=== PATIENT | male | born 1940 | race Caucasian/White ===

== ENCOUNTER 2020-02-20 00:54 | Inpatient (IN) | payer MEDICARE, OTHER ==
[~2020-02-20] VITALS: Ht 182.9 cm; Wt 62.1 kg
--- NOTE | 2020-02-20 01:08 | NUR ---
GARRETT FROM [facility] FOR ALTERED MENTAL STATUS AND SOB. PT NONVERBAL, EYES OPEN WITH PURPOSEFUL MOVEMENT. NO ACTIVE NVD AT THIS TIME. PT GOWNED AND PLACED ON MONITOR, BLOOD WORK SENT TO LAB, NO ACUTE DISTRESS NOTED. PT EVALUATED BY DR. PUTNAM
--- NOTE | 2020-02-20 01:08 | NUR ---
CALLED LAB FOR SWABS
[2020-02-20] MEDS ORDERED: diphenhydrAMINE HCL 50 MG/ML VIAL ONE ×4 (01:17→22:10)
--- NOTE | 2020-02-20 01:17 | NUR ---
RADIOLOGY AT BEDSIDE FOR CXR
[2020-02-20] MEDS ORDERED: LORAZEPAM INJ 2 MG/ML VIAL ONE ×2 (01:18→03:51)
--- NOTE | 2020-02-20 01:19 | NUR ---
PT VERY AGITATED AND UNABLE TO STAY STILL IN BED. MD MADE AWARE W/ A VERBAL ORDER FOR BENADRYL 25MG IV AND ATIVAN 0.5MG IV. NOTED
--- NOTE | 2020-02-20 01:20 | NUR ---
pt medicated as ordered. cooling measures applied for rectal fever 102. will closely monitor.
[2020-02-20] MEDS ORDERED: ACETAMINOPHEN 650 MG/SUPP.RECT RC ONE ×2 (01:29→01:30)
[2020-02-20] MEDS ORDERED: diphenhydrAMINE HCL 50 MG/ML VIAL IV ONE ×2 (01:30→04:00)
[2020-02-20] MEDS ORDERED: LORAZEPAM INJ 2 MG/ML VIAL IV ONE ×2 (01:30→04:00)
--- NOTE | 2020-02-20 01:37 | NUR ---
on room air pt noted at 95% with periods of 89%. RT called for abg order per dr. brady
[2020-02-20 01:43] LABS: BASOPHILS % (AUTO) 0.3 % (0.0-2.0); HEMATOCRIT 53 % (39-51); HEMOGLOBIN 17.7 g/dL (13.5-17.5); LYMPHOCYTES # (AUTO) 1.4 /CMM (0.8-4.8); LYMPHOCYTES % (AUTO) 15.4 % (20.0-44.0); MEAN CORPUSCULAR HGB CONC 33 g/dl (31.0-36.0); MEAN CORPUSCULAR VOLUME 102 fL (80-96); MONOCYTES # (AUTO) 0.6 /CMM (0.1-1.30); MONOCYTES % (AUTO) 6.9 % (2.0-12.0); NEUTROPHILS # (AUTO) 7.2 /CMM (1.8-8.9); NEUTROPHILS % (AUTO) 77.4 % (43.0-81.0); PLATELET COUNT (AUTO) 365 /CMM (150-450); RED BLOOD CELL COUNT(AUTO) 5.24 MIL/uL (4.5-6.0); WHITE BLOOD COUNT (AUTO) 9.3 K/uL (4.3-11.0)
[2020-02-20 01:45] LABS: BILIRUBIN,URINE SMALL (NEGATIVE); COLOR,URINE DARK YELLOW (YELLOW); LEUKOCYTE ESTERASE ,URINE NEGATIVE (NEGATIVE); NITRITE, URINE NEGATIVE (NEGATIVE); PH,URINE 5.5 (5.0-8.0); PROTEIN,URINE 100 mg/dl (NEGATIVE); UGLUCOSE NEGATIVE (NEGATIVE)
--- NOTE | 2020-02-20 01:45 | NUR ---
RT at bedside for ABG
--- NOTE | 2020-02-20 01:50 | NUR ---
pt to radiology for ct head.
[2020-02-20 01:57] LABS: C-REACTIVE PROTEIN 8.1 mg/dL (0.0-0.9)
[2020-02-20 01:58] LABS: ABG BASE EXCESS -2.1 mmol/L; ABG OXYGEN SATURATION 89.6 % (92.0-98.5); ABG PCO2 33.8 mmHg (35.0-45.0); AaDO2 51.3 mmHg; COHb 0.4 % (0.5-1.5); MetHb 0.1 % (0.0-1.5); O2Hb 89.2 % (94.0-97.0); SITE, ABG Left Radial; VENT MODE, BG Room Air
[2020-02-20 02:04] LABS: BACTERIA,URINE Few /HPF (None Seen); SQUAMOUS EPITHELIAL CELL,UR Few /HPF (None Seen); URINE AMORPHOUS URATE Many /HPF (None Seen)
[2020-02-20 02:10] LABS: ALANINE AMINOTRANSFERASE 266 U/L (12-78); ALBUMIN 3.4 g/dL (3.4-5.0); ALKALINE PHOSPHATASE 154 U/L (46-116); ASPARTATE AMINOTRANSFERASE 203 U/L (15-37); B-TYPE NATRIURETIC PEPTIDE 809 PG/ML (0-125); BILIRUBIN,TOTAL 1.3 mg/dL (0.2-1.0); CALCIUM, SERUM 10.1 mg/dL (8.5-10.1); CARBON DIOXIDE 28 mmol/L (21-32); CHLORIDE 114 mmol/L (98-107); CREATININE 2.4 mg/dL (0.6-1.3); GLUCOSE 210 mg/dL (74-106); TOTAL PROTEIN, SERUM 10.4 g/dL (6.4-8.2)
[2020-02-20 02:13] LABS: SODIUM SERUM 157 mmol/L (136-145); UREA NITROGEN, BLOOD 96 mg/dL (7-18)
[2020-02-20] MEDS ORDERED: DEXAMETHASONE SOD PHOSPHATE 10 MG/ML VIAL ONE (02:16)
[2020-02-20] MEDS ORDERED: QUET25TA PO (02:28)
[2020-02-20] MEDS ORDERED: DOCU-141 PO (02:28)
[2020-02-20] MEDS ORDERED: [UNRECOGNIZED DRUG - CODE] MC (02:28)
[2020-02-20] MEDS ORDERED: MULT-447 PO (02:28)
[2020-02-20] MEDS ORDERED: QUET100T PO (02:28)
[2020-02-20] MEDS ORDERED: CYAN-51 PO (02:28)
[2020-02-20] MEDS ORDERED: CLON0.5T PO (02:28)
[2020-02-20] MEDS ORDERED: CHOL2400 MC (02:28)
[2020-02-20] MEDS ORDERED: TRAZ-182 PO (02:28)
[2020-02-20] MEDS ORDERED: ASCO500W7 PO (02:28)
[2020-02-20] MEDS ORDERED: IV NS 0.9% 1,000 ML BAG IV ONE (02:30)
[2020-02-20] MEDS ORDERED: Z GUARD REMEDY 2 OZ OINT TP PRN (02:30)
[2020-02-20] MEDS ORDERED: ASPIRIN 300 MG/SUPP.RECT RC PRN (02:30)
[2020-02-20] MEDS ORDERED: ONDANSETRON HCL/PF 4 MG/2 ML VIAL IVP PRN (02:30)
[2020-02-20] MEDS ORDERED: DEXAMETHASONE SOD PHOSPHATE 10 MG/ML VIAL IV ONE (02:30)
--- NOTE | 2020-02-20 02:31 | NUR ---
pt to radiology for ct.
--- NOTE | 2020-02-20 02:36 | NUR ---
PT BACK FROM RADIOLOGY
[2020-02-20] MEDS ORDERED: VANCOMYCIN 500 MG VIAL ONE (02:55)
[2020-02-20] MEDS ORDERED: VANCOMYCIN 1 GM VIAL ONE (02:55)
[2020-02-20] MEDS ORDERED: VANCOMYCIN 1.5 GM in IV D5W 500ml IV ONE (03:00)
[2020-02-20] MEDS ORDERED: ACETAMINOPHEN 650 MG/SUPP.RECT RC PRN (03:00)
[2020-02-20 03:07] LABS: C-REACTIVE PROTEIN 7.9 mg/dL (0.0-0.9)
[2020-02-20] MEDS: IV NS 0.9% 1,000 ML IV PRN ×2 (03:23→22:08)
--- NOTE | 2020-02-20 03:47 | NUR ---
pt noted agitated, verbal orders per dr. brady to give ativan 0.5mg ivp/ benadryl 25mg ivp
--- NOTE | 2020-02-20 04:10 | NUR ---
pt turned and repositioned. noted unmeasuerable void in diaper.
[2020-02-20] MEDS ORDERED: CEFEPIME 1 GM in IV D5W 50 ML IV ONE (05:00)
--- NOTE | 2020-02-20 05:49 | NUR ---
unable to admin cefepime at this time in ER and additional pyxis, pharmacy closed, informed dr. rehman, waiting for orders.
[2020-02-20 05:56] LABS: BILIRUBIN,DIRECT 0.6 mg/dL (0.0-0.2)
--- NOTE | 2020-02-20 06:10 | NUR ---
pt turned and repositioned q2 hrs or prn. no acute distress noted. pt tolerated ivf.
--- NOTE | 2020-02-20 06:38 | NUR ---
informed dr. rehman updated labs trop and lactic acid. waiting for orders.
--- NOTE | 2020-02-20 07:14 | NUR ---
report given to GISSELL DORSEY for continuity of care. no acute distress noted at this time.
[2020-02-20] MEDS ORDERED: CHOL100040 PO (07:28)
[2020-02-20] MEDS ORDERED: ACET-868 PO (07:28)
[2020-02-20] MEDS ORDERED: ZINC220C6 PO (07:28)
[2020-02-20] MEDS ORDERED: MAGN400O6 PO (07:28)
[2020-02-20] MEDS ORDERED: ASCO500T10 PO (07:28)
[2020-02-20] MEDS ORDERED: PANTOPRAZOLE 40 MG VIAL IV SCH (09:00)
[2020-02-20] MEDS: CEFEPIME 2 GM in IV D5W 100 ML IV SCH (10:05)
[2020-02-20] MEDS: FAMOTIDINE/PF INJ 20 MG/2 ML VIAL IV SCH ×2 (10:05→21:27)
[2020-02-20] MEDS: DEXAMETHASONE SOD PHOSPHATE 10 MG/ML VIAL IV SCH (10:05)
[2020-02-20] MEDS: HEPARIN SODIUM, PORCINE 5000 UNITS/1 ML VIAL SQ SCH ×2 (10:05→21:27)
--- NOTE | 2020-02-20 10:43 | NUR ---
pt care rendered. pt is noted with rashes all over his lower leg and scrathcing. dr. cowan notified. verbal order received to give benadryl 25mg iv X 1. noted and carried out
[2020-02-20] MEDS: diphenhydrAMINE HCL 50 MG/ML VIAL IV PRN ×2 (11:36→22:19)
[2020-02-20] MEDS: ASPIRIN 325 MG TABLET PO SCH (12:15)
--- NOTE | 2020-02-20 19:24 | NUR ---
pt cleaned and kept dry. sitter tried to feed the pt but he is agitated and did not eat.
[2020-02-20] MEDS ORDERED: MORPHINE SULFATE INJ 2 MG/ML DISP.SYRIN ONE (22:10)
[2020-02-20] MEDS: MORPHINE SULFATE INJ 2 MG/ML DISP.SYRIN IV PRN (22:20)
--- NOTE | 2020-02-20 22:35 | NUR ---
PT ENDORSED TO GISSELL MELENDEZ
--- NOTE | 2020-02-20 23:50 | NUR ---
LAB CALLED REGARDING BLOOD CULTURE ANAEROBIC GRAM STAIN (+) COCCI IN CLUSTERS.
[2020-02-21] MEDS ORDERED: LORAZEPAM INJ 2 MG/ML VIAL IV ONE (01:00)
[2020-02-21] MEDS ORDERED: LORAZEPAM INJ 2 MG/ML VIAL ONE (01:00)
[2020-02-21] MEDS: VANCOMYCIN 1 GM in IV D5W 250ml IV SCH (05:06)
[2020-02-21 05:53] LABS: BASOPHILS % (AUTO) 0.1 % (0.0-2.0); HEMATOCRIT 45 % (39-51); HEMOGLOBIN 14.9 g/dL (13.5-17.5); LYMPHOCYTES % (AUTO) 9.7 % (20.0-44.0); MEAN CORPUSCULAR HGB CONC 33 g/dl (31.0-36.0); MEAN CORPUSCULAR VOLUME 102 fL (80-96); MONOCYTES # (AUTO) 0.7 /CMM (0.1-1.30); MONOCYTES % (AUTO) 6.3 % (2.0-12.0); NEUTROPHILS % (AUTO) 83.9 % (43.0-81.0); PLATELET COUNT (AUTO) 306 /CMM (150-450); RED BLOOD CELL COUNT(AUTO) 4.45 MIL/uL (4.5-6.0); WHITE BLOOD COUNT (AUTO) 10.7 K/uL (4.3-11.0)
[2020-02-21 06:19] LABS: B-TYPE NATRIURETIC PEPTIDE 1073 PG/ML (0-125); CALCIUM, SERUM 9.3 mg/dL (8.5-10.1); CARBON DIOXIDE 27 mmol/L (21-32); CREATININE 2.1 mg/dL (0.6-1.3); GLUCOSE 261 mg/dL (74-106); MAGNESIUM 3.8 mg/dL (1.8-2.4); POTASSIUM 4.5 mmol/L (3.5-5.1)
[2020-02-21 06:22] LABS: CHLORIDE 127 mmol/L (98-107); SODIUM SERUM 164 mmol/L (136-145); UREA NITROGEN, BLOOD 106 mg/dL (7-18)
[2020-02-21 06:36] LABS: CHOLESTEROL 181 mg/dL (<200); HDL CHOLESTEROL 24 mg/dL (40-60); LDL 104 mg/dL (0-99); THYROID STIMULATING HORMONE 0.418 uIU/mL (0.358-3.74); TRIGLYCERIDES 308 mg/dL (30-150)
[2020-02-21] MEDS: ASPIRIN 325 MG TABLET PO SCH (09:00)
[2020-02-21] MEDS: HEPARIN SODIUM, PORCINE 5000 UNITS/1 ML VIAL SQ SCH ×2 (09:00→21:54)
[2020-02-21] MEDS: CEFEPIME 2 GM in IV D5W 100 ML IV SCH (09:00)
[2020-02-21] MEDS: DEXAMETHASONE SOD PHOSPHATE 10 MG/ML VIAL IV SCH (09:00)
[2020-02-21] MEDS: FAMOTIDINE/PF INJ 20 MG/2 ML VIAL IV SCH ×2 (09:00→21:55)
--- NOTE | 2020-02-21 10:13 | NUR ---
Status quo still awaiting bed, remains restless and agitated at times moving in bed.
[2020-02-21] MEDS ORDERED: DEXTROSE 50%-WATER 50 ML DISP.SYRIN IV PRN (11:30)
[2020-02-21] MEDS: BLOOD SUGAR DIAGNOSTIC 1 EACH STRIP IN SCH ×2 (12:00→17:13)
--- NOTE | 2020-02-21 14:00 | NUR ---
Beddings changed/maría care rendered and cleaned. Diapers changed. Remains restless in bed with periods of rest. Able to doze on/off. Pt turns head side to side frequently and dislodges Oxygen cannula- Remains on O2 to keep sats >92. Repositioned frequently and turned Q2H.
[2020-02-21] MEDS: INSULIN REGULAR, HUMAN 100 UNIT/ML 3 ML VIAL SQ PRN (17:16)
--- NOTE | 2020-02-21 17:50 | NUR ---
Remains on NPO/Non Verbal Accu check as ordered with SS coverage
--- NOTE | 2020-02-21 19:25 | NUR ---
Report to GISSELL Calvillo for continuity of care
[2020-02-21] MEDS ORDERED: PERMETHRIN 5% CRM 60 GM TUBE TP ONE (20:00)
--- NOTE | 2020-02-21 21:26 | NUR ---
REPORT CALLED TO LILY RITTER. WILL TRANSPORT PT VIA ACLS PROTOCOL.
[2020-02-21] MEDS ORDERED: FAMOTIDINE/PF INJ 20 MG/2 ML VIAL IV ONE (21:52)
--- NOTE | 2020-02-21 22:10 | NUR ---
RN OPENING NOTE ADMIT PATIENT TO [facility] UNIT ON TELE MONITORING,ALERT CONFUSED ANXIOUS NONVERBAL EYE CLOSED COVID POSITIVE WITH ADMITTING DIAGNOSIS: SEPTIC SHOCK HYPOXEMIA,RENAL FAILURE,ON 5L OXYGEN VIA NASAL CANNULA O2:90%IV SITE IS ON RIGHT UPPER ARM #20 G INTACT PATENT PATIENT HAS RASHES ALL OVER BODY IN CONTACT ISOLATION,CONTINUE TO MONITOR
--- NOTE | 2020-02-21 22:10 | NUR ---
PT TRANSFERRED PER [facility]S PROTOCOL
[2020-02-21] MEDS: IV D5/0.45 NACL 1,000 ML IV PRN (22:47)
[2020-02-21 23:00] VITALS: BP 110/73
[2020-02-22] VITALS (7 sets, daily range): BP systolic 133–158; BP diastolic 77–83
[2020-02-22] MEDS: BLOOD SUGAR DIAGNOSTIC 1 EACH STRIP IN SCH ×5 (00:14→23:55)
[2020-02-22] MEDS: INSULIN REGULAR, HUMAN 100 UNIT/ML 3 ML VIAL SQ PRN ×3 (00:15→18:09)
[2020-02-22] MEDS: MORPHINE SULFATE INJ 2 MG/ML DISP.SYRIN IV PRN (00:34)
[2020-02-22] MEDS: VANCOMYCIN 1 GM in IV D5W 250ml IV SCH (04:38)
[2020-02-22 04:41] LABS: BASOPHILS # (AUTO) 0.1 /CMM (0.0-0.2); BASOPHILS % (AUTO) 0.4 % (0.0-2.0); HEMATOCRIT 46 % (39-51); HEMOGLOBIN 14.8 g/dL (13.5-17.5); LYMPHOCYTES # (AUTO) 0.9 /CMM (0.8-4.8); LYMPHOCYTES % (AUTO) 6.7 % (20.0-44.0); MEAN CORPUSCULAR HGB CONC 32 g/dl (31.0-36.0); MEAN CORPUSCULAR VOLUME 102 fL (80-96); MONOCYTES # (AUTO) 0.8 /CMM (0.1-1.30); MONOCYTES % (AUTO) 6.2 % (2.0-12.0); NEUTROPHILS # (AUTO) 11.1 /CMM (1.8-8.9); NEUTROPHILS % (AUTO) 86.7 % (43.0-81.0); PLATELET COUNT (AUTO) 292 /CMM (150-450); WHITE BLOOD COUNT (AUTO) 12.8 K/uL (4.3-11.0)
[2020-02-22 05:00] LABS: CALCIUM, SERUM 9.2 mg/dL (8.5-10.1); CARBON DIOXIDE 22 mmol/L (21-32); CREATININE 1.8 mg/dL (0.6-1.3); GLUCOSE 263 mg/dL (74-106); MAGNESIUM 3.9 mg/dL (1.8-2.4); PHOSPHORUS 4.2 mg/dL (2.5-4.9); POTASSIUM 4.6 mmol/L (3.5-5.1)
[2020-02-22 05:07] LABS: CHLORIDE 133 mmol/L (98-107); SODIUM SERUM 167 mmol/L (136-145); UREA NITROGEN, BLOOD 89 mg/dL (7-18)
--- NOTE | 2020-02-22 05:23 | NUR ---
RN NOTE RECEIVED CRITICAL LAB RESULT SODIUM 167 CHLORIDE 133 BUN 89,SPOKE WITH MAYKEL BATISTA NO NEW ORDER AT THIS TIME,FOLLOW UP WITH MORNING SHIFT,CONTINUE TO MONITORING
--- NOTE | 2020-02-22 06:56 | NUR ---
RN NOTE START A NEW IV LINE ON RIGHT FOREARM #20 G WITH GOOD BLOOD RETURN INTACT PATENT NO SWELLING,NO INFILTRATED CONTINUE TO MONITOR.
--- NOTE | 2020-02-22 07:01 | NUR ---
RN CLOSING NOTE PATIENT REMAINS ALERT CONFUSED ANXIOUS,NON VERBAL CLOSE EYES,ON 5L OXYGEN VIA NASAL CANNULA 02:94%,COVID POSITIVE, ON CONTACT/DROPLET ISOLATION,IV SITE IS LEFT UPPER ARM AND RIGHT FOREARM INTACT PATENT ON D51/2NS IV HYDRATION 100CC/HR,ALL DUE MEDS GIVEN MD ORDERED,KEPT CLEAN AND DRY ALL THE TIME,KEPT COMFORTABLE,ENDORSE NEXT COMING SHIFT FOR CONTINUATION OF CARE.
--- NOTE | 2020-02-22 07:40 | NUR ---
WOUND CARE CONSULT: REVIEWED CHART, NURSING DOCUMENTATION AND PHOTOS WHICH INDICATE RT GREAT TOENAIL DISCOLORATION, RASHES TO BODY (GENERALIZED) AND RT ARM SKIN TEAR, ALL PRESENT ON ADMISSION. RECOMMENDATIONS MADE FOR SKIN PROTECTION AND WOUND CARE. DISCUSSED WITH NURSING STAFF. PT NOTED TO BE MOVING ABOUT IN BED. MD IN AGREEMENT WITH PLAN OF CARE. Addendum: 02/22/20 at 0743 by GIANNA PORTER WNDNU PER CHART, PT WAS TREATED WITH ELIMITE CREAM FOR RASH.
[2020-02-22] MEDS: FAMOTIDINE/PF INJ 20 MG/2 ML VIAL IV SCH ×2 (08:14→20:35)
[2020-02-22] MEDS: DEXAMETHASONE SOD PHOSPHATE 10 MG/ML VIAL IV SCH (08:14)
[2020-02-22] MEDS: HEPARIN SODIUM, PORCINE 5000 UNITS/1 ML VIAL SQ SCH ×2 (08:17→20:35)
[2020-02-22] MEDS: ASPIRIN 325 MG TABLET PO SCH (09:00)
[2020-02-22] MEDS: MULTIVITAMINS,THERAGRAN 1 UDTAB TABLET PO SCH (09:16)
[2020-02-22] MEDS: ZINC SULFATE 220 MG CAPSULE PO SCH (09:30)
[2020-02-22] MEDS: CHOLECALCIFEROL 1,000 UNIT TABLET (VIT D3) PO SCH (09:30)
[2020-02-22] MEDS: CYANOCOBALAMIN 500 MCG TABLET PO SCH (09:30)
[2020-02-22] MEDS: ASCORBIC ACID 500 MG TABLET PO SCH (09:30)
[2020-02-22] MEDS: CEFEPIME 2 GM in IV D5W 100 ML IV SCH (09:59)
[2020-02-22] MEDS: IV D5/0.45 NACL 1,000 ML IV PRN ×2 (10:07→22:49)
[2020-02-22] MEDS: NITROGLYCERIN 30 GM TUBE TP SCH ×2 (11:00→20:53)
--- NOTE | 2020-02-22 11:00 | NUR ---
RN NOTES DR. RIVERA ORDERED NG TUBE INSERTION. PT CANNOT TOLERATE PROCEDURE, IN DISTRESS. INFORMED MD.
--- NOTE | 2020-02-22 14:00 | NUR ---
RN NOTES DR. RIVERA TRIED INSERTING NG TUBE. PT NOT TOLERATING PROCEDURE STILL. WILL TRY AGAIN ABDIFATAH
--- NOTE | 2020-02-22 19:30 | NUR ---
TYPE CASTER NOTES RECEIVED ON FLAT ON BED,BREATHING NON LABORED,O2 IN USED AT 5L/NC,DROPLET ISOLATION FOR COVID 19 POSITIVE,APPEARS CONFUSED,ON BILATERAL SOFT WRIST RESTRAINTS FOR SAFETY,TRYING TO PULL OUT IV TUBINGS.PRESENT IVF INFUSING WELL ON LFA SALINE LOCK VIA IV PUMP,SITE PATENT.NOTED GENERALIZED BODY RASH,WILL START ON TOPICAL CREAM NEW ORDER.WILL CONTINUE TO MONITOR STATUS.
--- NOTE | 2020-02-22 19:36 | NUR ---
RN CLOSING NOTES PT IN BED. CONFUSED. WITH BILATERAL SOFT RESTRAINTS. NON VERBAL. ON 5L OXYGEN VIA NASAL CANNULA SATURATING @96%. COVID POSITIVE, ON CONTACT/DROPLET ISOLATION. IV SITE ON ANGIE AND RFA BOTH INTACT AND PATENT. D5 1/2 NS IV @100CC/HR. SAFETY MEASURES OBSERVED. CALL LIGHT WITHIN REACH. BED LOCKED AND AT LOWEST POSITION. WILL ENDORSE TO NIGHT NURSE FOR JULIEN
[2020-02-22] MEDS: diphenhydrAMINE HCL 50 MG/ML VIAL IV SCH (20:37)
--- NOTE | 2020-02-22 20:37 | NUR ---
PUBLIC AREA SUPERVISOR NOTES STARTED ON BENADRYL 25MG IV ORDERED FOR BODY RASH
[2020-02-22] MEDS: TRIAMCINOLONE ACETONIDE 0.1% CR 15 GM TUBE TP SCH (20:59)
--- NOTE | 2020-02-22 21:01 | NUR ---
[employer]WN [employer] TREE SERVICE SPRAY SUPERVISOR NOTES TRIAMCINOLONE CREAM STARTED TO BODY RASH ORDERED.
--- NOTE | 2020-02-23 | NUR ---
EVENT DESIGNER NOTES ACCU-CHECK BLOOD SUGAR CHECK 191.COVERED WITH HUMULIN R 3 UNITS PER SLIDING SCALE.IVF INFUSING.
[2020-02-23] MEDS: INSULIN REGULAR, HUMAN 100 UNIT/ML 3 ML VIAL SQ PRN ×4 (00:07→17:27)
[2020-02-23 03:00] VITALS: BP 130/82
[2020-02-23] MEDS: BLOOD SUGAR DIAGNOSTIC 1 EACH STRIP IN SCH ×3 (05:25→17:27)
--- NOTE | 2020-02-23 05:30 | NUR ---
VEHICLE PAINTER NOTES ACCU-CHECK BLOOD SUGAR CHECK 174,COVERED WITH HUMULIN R 3 UNITS PER SLIDING SCALE.
[2020-02-23 06:54] LABS: BASOPHILS % (AUTO) 0.2 % (0.0-2.0); HEMATOCRIT 45 % (39-51); HEMOGLOBIN 14.6 g/dL (13.5-17.5); LYMPHOCYTES # (AUTO) 0.9 /CMM (0.8-4.8); LYMPHOCYTES % (AUTO) 8.1 % (20.0-44.0); MEAN CORPUSCULAR HGB CONC 32 g/dl (31.0-36.0); MEAN CORPUSCULAR VOLUME 102 fL (80-96); MONOCYTES # (AUTO) 0.6 /CMM (0.1-1.30); MONOCYTES % (AUTO) 5.6 % (2.0-12.0); NEUTROPHILS # (AUTO) 9.5 /CMM (1.8-8.9); NEUTROPHILS % (AUTO) 86.1 % (43.0-81.0); PLATELET COUNT (AUTO) 267 /CMM (150-450); RED BLOOD CELL COUNT(AUTO) 4.43 MIL/uL (4.5-6.0); WHITE BLOOD COUNT (AUTO) 11.1 K/uL (4.3-11.0)
--- NOTE | 2020-02-23 06:55 | NUR ---
OUTSOLE BEVELER NOTES ON BED,REMAINS CONFUSED,NO SOB ,AFEBRILE,O2 SATURATION REMAINS AT 90-96% ON 5L/NC,RESTLESS AT TIMES,BILATERAL SOFT RESTRAINTS IN USED.IVF INFUSING,IN NO ACUTE DISTRESS.
[2020-02-23 07:00] VITALS: BP 149/82
[2020-02-23 07:08] LABS: CALCIUM, SERUM 9.5 mg/dL (8.5-10.1); CARBON DIOXIDE 23 mmol/L (21-32); CREATININE 1.5 mg/dL (0.6-1.3); GLUCOSE 221 mg/dL (74-106); PHOSPHORUS 3.4 mg/dL (2.5-4.9); POTASSIUM 4.6 mmol/L (3.5-5.1); UREA NITROGEN, BLOOD 78 mg/dL (7-18)
--- NOTE | 2020-02-23 07:50 | NUR ---
TELE OPENING NOTES RECEIVED PT IN BED. CONFUSED. WITH BILATERAL SOFT RESTRAINTS. NON VERBAL.ON 5L OXYGEN VIA NASAL CANNULA SATURATING @96%. COVID POSITIVE, ON CONTACT/DROPLET ISOLATION. IV SITE ON ANGIE AND RFA BOTH INTACT AND PATENT. D5 1/2 NS IV @100CC/HR. SAFETY MEASURES OBSERVED. CALL LIGHT WITHIN REACH. BED LOCKED AND AT LOWEST POSITION. WILL CONTINUE TO MONITOR
[2020-02-23] MEDS: CHOLECALCIFEROL 1,000 UNIT TABLET (VIT D3) PO SCH (08:31)
[2020-02-23] MEDS: CYANOCOBALAMIN 500 MCG TABLET PO SCH (08:31)
[2020-02-23] MEDS: ZINC SULFATE 220 MG CAPSULE PO SCH (08:31)
[2020-02-23] MEDS: ASPIRIN 325 MG TABLET PO SCH (08:31)
[2020-02-23] MEDS: ASCORBIC ACID 500 MG TABLET PO SCH (08:31)
[2020-02-23] MEDS: MULTIVITAMINS,THERAGRAN 1 UDTAB TABLET PO SCH (08:31)
[2020-02-23] MEDS: CEFEPIME 2 GM in IV D5W 100 ML IV SCH (08:39)
[2020-02-23] MEDS: NITROGLYCERIN 30 GM TUBE TP SCH ×2 (08:42→20:55)
[2020-02-23] MEDS: TRIAMCINOLONE ACETONIDE 0.1% CR 15 GM TUBE TP SCH ×2 (08:44→17:21)
[2020-02-23] MEDS: diphenhydrAMINE HCL 50 MG/ML VIAL IV SCH ×2 (08:48→17:21)
[2020-02-23] MEDS: DEXAMETHASONE SOD PHOSPHATE 10 MG/ML VIAL IV SCH (08:50)
[2020-02-23] MEDS: FAMOTIDINE/PF INJ 20 MG/2 ML VIAL IV SCH ×2 (08:50→20:49)
[2020-02-23] MEDS: HEPARIN SODIUM, PORCINE 5000 UNITS/1 ML VIAL SQ SCH ×2 (08:53→20:52)
--- NOTE | 2020-02-23 08:58 | NUR ---
LAB CRITICAL RESULTS RECEIVED CALL FROM YAMILET FROM LAB WITH SODIUM 171 CHLORIDE 135 BUN 78 NOTIFIED
[2020-02-23 08:59] LABS: CHLORIDE 135 mmol/L (98-107); SODIUM SERUM 171 mmol/L (136-145)
[2020-02-23] MEDS ORDERED: MULTIVITAMIN LIQ 5 ML UDC GT SCH (09:00)
[2020-02-23] MEDS: IV D5/0.45 NACL 1,000 ML IV PRN (09:04)
[2020-02-23 11:00] VITALS: BP 149/82
[2020-02-23 15:00] VITALS: BP 146/81
[2020-02-23 19:00] VITALS: BP 148/67
--- NOTE | 2020-02-23 19:06 | NUR ---
RN CLOSING NOTE PATIENT REMAINS ALERT CONFUSED NON VERBAL CLOSE EYES,ON 5L OXYGEN VIA NASAL CANNULA O2SAT RANGING FROM 92-95 % COVID POSITIVE, ON CONTACT/DROPLET ISOLATION,IV SITE IS LEFT UPPER ARM AND RIGHT FOREARM INTACT PATENT ON D5W HYDRATION 100CC/HR,ALL DUE MEDS GIVEN MD ORDERED,KEPT CLEAN AND DRY ALL THE TIME,KEPT COMFORTABLE,WILL ENDORSE TO ONCOMING SHIFT
[2020-02-23] MEDS: IV D5W 1,000 ML IV PRN (19:19)
--- NOTE | 2020-02-23 19:30 | NUR ---
CELL MAKER NOTES RECEIVED CALM ON BED THIS TIME,NON RESTLESS.STILL ON BILATERAL SOFT WRIST RESTRAINTS FOR SAFETY,PATIENT HAS TENDENCY TO PULL OUT TUBINGS.PRESENT IVF D5W AT 150ML/HR RATE INFUSING WELL ON ANGIE SALINE LOCK VIA IV PUMP.INCONTINENT OF URINE.BODY RASH APPEARS DRY.O2 IN USED AT 5L/NC.NO SOB.WILL CONTINUE TO MONITOR STATUS.
--- NOTE | 2020-02-23 21:18 | NUR ---
LINE ORDERING CLINICIAN NOTES SR WITH PAC'S/PVC'S-62 ON TELE MONITOR.
[2020-02-23 23:00] VITALS: BP 109/76
[2020-02-24] MEDS: INSULIN REGULAR, HUMAN 100 UNIT/ML 3 ML VIAL SQ PRN ×5 (00:13→23:48)
[2020-02-24 03:00] VITALS: BP 109/70
[2020-02-24] MEDS: IV D5W 1,000 ML IV PRN ×2 (03:13→14:12)
[2020-02-24] MEDS: BLOOD SUGAR DIAGNOSTIC 1 EACH STRIP IN SCH ×5 (05:34→23:48)
--- NOTE | 2020-02-24 05:49 | NUR ---
LICENSED ARCHITECT NOTES ACCU-CHECK BLOOD SUGAR CHECK 197,COVERED WITH HUMULIN R 3 UNITS PER SLIDING SCALE.
--- NOTE | 2020-02-24 06:40 | NUR ---
BALLAST INSPECTOR NOTES NO SIGNIFICANT CHANGE IN STATUS.REMAINS AFEBRILE.IVF INFUSIN,NO SOB NOTED,RESTRAINTS IN USED FOR SAFETY.IN NO ACUTE DISTRESS.
[2020-02-24 07:00] VITALS: BP 112/72
--- NOTE | 2020-02-24 07:00 | NUR ---
STONE PLANER OPENING NOTES RECEIVED PT AWAKE IN BED AT THIS TIME. PT IS NON VERBAL. RESPONDS TO LIGHT STIMULUS. NO SOB NOTED, NO S/S OF ANY ACUTE DISTRESS NOTED. NO SIGN OF PAIN AT THIS TIME. RESPIRATIONS ARE EVEN AND UNLABORED. PT ON OXYGEN 5LPM VIA NC. PT ON EXTERNAL TELE FOREIGN CAR MECHANIC READING SR@70 WITH PAC. PT NOTED ON BILATERAL SOFT WRIST RESTRAINS, PULSES PRESENT BILATERALLY, CAPILLARY REFILL<3SECONDS, GOOD CIRCULATION NOTED. PT ON NPO STATUS. IV ACCESS NOTED IN LFA G#20, INTACT, PATENT AND FLUSHING WELL. SAFETY PRECAUTION IN PLACE AND MAINTAINED AT ALL TIMES. BED IN LOWEST LOCKED POSITION, HOB ELEVATED, SIDE RAILS UP X 2, CALL LIGHT AND TABLE WITHIN REACH. WILL CONTINUE TO MONITOR
[2020-02-24 07:26] LABS: BASOPHILS % (AUTO) 0.2 % (0.0-2.0); HEMATOCRIT 42 % (39-51); HEMOGLOBIN 13.6 g/dL (13.5-17.5); LYMPHOCYTES # (AUTO) 0.9 /CMM (0.8-4.8); LYMPHOCYTES % (AUTO) 10.2 % (20.0-44.0); MEAN CORPUSCULAR HGB CONC 33 g/dl (31.0-36.0); MEAN CORPUSCULAR VOLUME 103 fL (80-96); MONOCYTES # (AUTO) 0.4 /CMM (0.1-1.30); MONOCYTES % (AUTO) 4.6 % (2.0-12.0); NEUTROPHILS # (AUTO) 7.3 /CMM (1.8-8.9); PLATELET COUNT (AUTO) 207 /CMM (150-450); RED BLOOD CELL COUNT(AUTO) 4.07 MIL/uL (4.5-6.0); WHITE BLOOD COUNT (AUTO) 8.5 K/uL (4.3-11.0)
[2020-02-24 07:44] LABS: CARBON DIOXIDE 28 mmol/L (21-32); CREATININE 1.6 mg/dL (0.6-1.3); GLUCOSE 224 mg/dL (74-106); MAGNESIUM 3.5 mg/dL (1.8-2.4); PHOSPHORUS 3.2 mg/dL (2.5-4.9); POTASSIUM 4.5 mmol/L (3.5-5.1); UREA NITROGEN, BLOOD 70 mg/dL (7-18)
[2020-02-24 07:46] LABS: CHLORIDE 129 mmol/L (98-107); SODIUM SERUM 166 mmol/L (136-145)
[2020-02-24] MEDS: HEPARIN SODIUM, PORCINE 5000 UNITS/1 ML VIAL SQ SCH ×2 (08:41→21:32)
[2020-02-24] MEDS: DEXAMETHASONE SOD PHOSPHATE 10 MG/ML VIAL IV SCH (08:42)
[2020-02-24] MEDS: diphenhydrAMINE HCL 50 MG/ML VIAL IV SCH ×2 (08:42→16:29)
[2020-02-24] MEDS: FAMOTIDINE/PF INJ 20 MG/2 ML VIAL IV SCH ×2 (08:43→21:31)
[2020-02-24] MEDS: CEFEPIME 2 GM in IV D5W 100 ML IV SCH (08:44)
[2020-02-24] MEDS: CYANOCOBALAMIN 500 MCG TABLET PO SCH (09:00)
[2020-02-24] MEDS: CHOLECALCIFEROL 1,000 UNIT TABLET (VIT D3) PO SCH (09:00)
[2020-02-24] MEDS: ASCORBIC ACID 500 MG TABLET PO SCH (09:00)
[2020-02-24] MEDS: ZINC SULFATE 220 MG CAPSULE PO SCH (09:00)
[2020-02-24] MEDS: MULTIVITAMINS,THERAGRAN 1 UDTAB TABLET PO SCH (09:00)
[2020-02-24] MEDS: ASPIRIN 325 MG TABLET PO SCH (09:00)
[2020-02-24] MEDS: NITROGLYCERIN 30 GM TUBE TP SCH ×2 (09:48→21:32)
[2020-02-24] MEDS: TRIAMCINOLONE ACETONIDE 0.1% CR 15 GM TUBE TP SCH ×2 (09:50→16:29)
--- NOTE | 2020-02-24 09:57 | NUR ---
ANGIE IV INFILTRATED. IV REMOVED, PRESSURE APPLIED SECURE WITH GAUZE AND TAPE. ICE PACK APPLIED, HAND ELEVATED ON A PILLOW. WILL CONTINUE TO MONITOR
--- NOTE | 2020-02-24 09:58 | NUR ---
IV INSERTED IN RFA G#20, GOOD BLOOD RETURN NOTED. PT TOLERATED WELL. IV ACCESS INTACT, PATENT AND FLUSHING WELL. WILL CONTINUE TO MONITOR
[2020-02-24 11:00] VITALS: BP 120/80
--- NOTE | 2020-02-24 14:24 | NUR ---
SHARA MEJIAS ([phone]), PT's DAUGHTER CALLED AND WAS UPDATED ON PT's STATUS. WILL CONTINUE TO MONITOR
[2020-02-24 15:00] VITALS: BP 137/78
--- NOTE | 2020-02-24 17:14 | NUR ---
RFA IV INFILTRATED. IV REMOVED, PRESSURE APPLIED SECURE WITH GAUZE AND TAPE. ICE PACK APPLIED, HAND ELEVATED ON A PILLOW. WILL CONTINUE TO MONITOR
--- NOTE | 2020-02-24 17:17 | NUR ---
INSERTED IV ACCESS IN CHRIST G#22 AT THIS TIME, GOOD BLOOD RETURN NOTED. PT TOLERATED WELL. IV ACCESS INTACT, PATENT AND FLUSHING WELL. WILL CONTINUE TO MONITOR
[2020-02-24 19:02] VITALS: BP 126/68
--- NOTE | 2020-02-24 19:03 | NUR ---
RECREATION ACTIVITIES COORDINATOR CLOSING NOTES PT AWAKE IN BED AT THIS TIME. PT REMAINED STABLE THROUGHOUT SHIFT. ALL CARE, NEED, MEDICATIONS AND TREATMENT ADMINISTERED ANTICIPATED PER ORDER. WOUND TREATMENT PROVIDED. PT KEPT CLEAN AND DRY. RESTRAINTS ASSESSED Q2HR AND PRN. SKIN UNDERNEATH RESTRAINTS INTACT, PULSES ARE PRESENT BILATERALLY, CAPILLARY REFILL < 3SECONDS, GOOD CIRCULATION NOTED. ASPIRATION AND SAFETY PRECAUTION IN PLACE AND MAINTAINED AT ALL TIMES. BED IN LOWEST LOCKED POSITION, HOB ELEVATED, SIDE RAILS UP X 2, CALL LIGHT AND TABLE WITHIN REACH. WILL ENDORSE TO BASKET BRAIDER NURSE FOR JULIEN
--- NOTE | 2020-02-24 19:30 | NUR ---
TELE/RN OPENING NOTES RECEIVED PATIENT IN BED RESTING. PATIENT IS ALERT AND ORIENTED X 0 CONFUSED, NON VERBAL. PATIENT BREATHING IS EVEN AND UNLABORED. NO SIGNS OF SOB OR RESPIRATORY DISTRESS NOTED. PATIENT IN NO SIGNS OF DISTRESS. IV ACCESS ON CHRIST #20G RUNNING D5W 150CC/HR. BILATERAL SOFT WRIST RESTRAINTS IN PLACE WITH GOOD CIRCULATION. SAFETY MEASURES ARE IN PLACE, BED IS LOCKED AND PLACED IN THE LOW POSITION, SIDE RAILS UP X 3, CALL LIGHT WITH IN REACH. WILL CONTINUE TO MONITOR THROUGH OUT SHIFT.
[2020-02-24 21:53] LABS: CARBON DIOXIDE 25 mmol/L (21-32); CHLORIDE 124 mmol/L (98-107); CREATININE 1.5 mg/dL (0.6-1.3); GLUCOSE 297 mg/dL (74-106); POTASSIUM 5.3 mmol/L (3.5-5.1); SODIUM SERUM 153 mmol/L (136-145); UREA NITROGEN, BLOOD 66 mg/dL (7-18)
[2020-02-24 23:00] VITALS: BP 126/76
[2020-02-25 03:00] VITALS: BP 137/71
[2020-02-25] MEDS: IV D5W 1,000 ML IV PRN ×3 (05:10→23:10)
[2020-02-25] MEDS: BLOOD SUGAR DIAGNOSTIC 1 EACH STRIP IN SCH ×4 (05:46→23:50)
[2020-02-25] MEDS: INSULIN REGULAR, HUMAN 100 UNIT/ML 3 ML VIAL SQ PRN ×4 (05:47→23:56)
--- NOTE | 2020-02-25 06:35 | NUR ---
TELE/RN CLOSING NOTES PATIENT IN BED RESTING. PATIENT IS ALERT AND ORIENTED X 0 CONFUSED, NON VERBAL. PATIENT BREATHING IS EVEN AND UNLABORED. NO SIGNS OF SOB OR RESPIRATORY DISTRESS NOTED. TELE READING SR 62S. PATIENT IN NO SIGNS OF DISTRESS. IV ACCESS ON CHRIST #20G RUNNING D5W 150CC/HR. BILATERAL SOFT WRIST RESTRAINTS IN PLACE WITH GOOD CIRCULATION. ALL PATIENT NEEDS HAVE BEEN MET DURING SHIFT. SAFETY MEASURES ARE IN PLACE, BED IS LOCKED AND PLACED IN THE LOW POSITION, SIDE RAILS UP X 3, CALL LIGHT WITH IN REACH. WILL ENDORSE CARE TO DAY SHIFT NURSE.
[2020-02-25 07:00] VITALS: BP 109/73
[2020-02-25 07:25] LABS: CALCIUM, SERUM 9.4 mg/dL (8.5-10.1); CARBON DIOXIDE 27 mmol/L (21-32); CHLORIDE 124 mmol/L (98-107); CREATININE 1.4 mg/dL (0.6-1.3); GLUCOSE 178 mg/dL (74-106); POTASSIUM 5.2 mmol/L (3.5-5.1); UREA NITROGEN, BLOOD 64 mg/dL (7-18)
--- NOTE | 2020-02-25 07:30 | NUR ---
TELE/RN OPENING NOTE Received patient resting in bed, non-verbal. No s/s of pain/discomfort at this time. Breathing even and non-labored on 10L oxygen via NC. No respiratory or cardiac distress noted. On tele monitor, reading SR 65. CHRIST #22 g IV access noted, patent and intact, running D5W @ 150 ml/hr, and flushing well. Bilateral soft wrist restraints noted, checked both arms for circulation and sensation, are intact. Bed locked to its lowest position, side rails x 2 up, call light in hand. Will continue with current medical management.
[2020-02-25 07:56] LABS: SODIUM SERUM 158 mmol/L (136-145)
[2020-02-25] MEDS: ASPIRIN 325 MG TABLET PO SCH (08:34)
[2020-02-25] MEDS: MULTIVITAMINS,THERAGRAN 1 UDTAB TABLET PO SCH (08:34)
[2020-02-25] MEDS: CHOLECALCIFEROL 1,000 UNIT TABLET (VIT D3) PO SCH (08:35)
[2020-02-25] MEDS: ZINC SULFATE 220 MG CAPSULE PO SCH (08:35)
[2020-02-25] MEDS: ASCORBIC ACID 500 MG TABLET PO SCH (08:35)
[2020-02-25] MEDS: CYANOCOBALAMIN 500 MCG TABLET PO SCH (08:35)
[2020-02-25] MEDS: NITROGLYCERIN 30 GM TUBE TP SCH ×2 (09:00→21:59)
[2020-02-25] MEDS: CEFEPIME 2 GM in IV D5W 100 ML IV SCH (09:48)
[2020-02-25] MEDS: diphenhydrAMINE HCL 50 MG/ML VIAL IV SCH ×2 (09:50→17:58)
[2020-02-25] MEDS: DEXAMETHASONE SOD PHOSPHATE 10 MG/ML VIAL IV SCH (09:51)
[2020-02-25] MEDS: FAMOTIDINE/PF INJ 20 MG/2 ML VIAL IV SCH ×2 (09:54→20:29)
--- NOTE | 2020-02-25 09:55 | NUR ---
TELE/RN NOTE Unable to scan famotidine 20 mg/2ml, "unknown [facility] [place] number pops up". Manually entered as administered medication. Lot#[id number] EXP 11/21.
[2020-02-25] MEDS: HEPARIN SODIUM, PORCINE 5000 UNITS/1 ML VIAL SQ SCH ×2 (09:57→20:30)
--- NOTE | 2020-02-25 10:00 | NUR ---
TELE/RN NOTE Titrated oxygen down to 5 L via NC. Patient tolerating current level well, saturating at 98%, no respiratory distress noted.
[2020-02-25] MEDS: TRIAMCINOLONE ACETONIDE 0.1% CR 15 GM TUBE TP SCH ×2 (10:23→18:00)
[2020-02-25 11:00] VITALS: BP 171/81
--- NOTE | 2020-02-25 14:00 | NUR ---
TELE/RN NOTE Titrated oxygen down to 3L via NC. Patient tolerating current level, saturating at 99%. No respiratory distress noted.
[2020-02-25 15:00] VITALS: BP 120/75
[2020-02-25] MEDS ORDERED: PERMETHRIN 5% CRM 60 GM TUBE TP ONE (18:00)
[2020-02-25] MEDS: CEFTRIAXONE 1 G in IV D5W 50 ML IV SCH (18:04)
--- NOTE | 2020-02-25 18:54 | NUR ---
TELE/RN CLOSING NOTE Patient resting in bed, non-verbal, easily arousable to touch and verbal stimulation. All needs met and attended to. No s/s of pain/discomfort throughout shift. Breathing even and non-labored on 3L oxygen via NC. No respiratory or cardiac distress noted. On tele monitor, reading SB 59. CHRIST #22 g IV access noted, patent and intact, running D5W @ 200 ml/hr, and flushing well. Bilateral soft wrist restraints noted, checked both arms for circulation and sensation, remain intact. Fall precautions maintained. Will endorse to date night caregiver nurse.
--- NOTE | 2020-02-25 19:40 | NUR ---
pathological technician opening notes Received Pt from morning nurse. Pt is resting in bed comfortably. Pt is non verbal and able to open eyes and easily arousable. Breathing is even and unlabored on 3 L NC. No SOB. No S/S of distress noted. Tele monitor showed Sinus becca hr at 58 bpm. IV sites at CHRIST# 22 is clean, intact and infusing well D5W@ 200 ml/hr. Bilateral soft wrist restraint are intact, skin is warm to touch and circulation is check Q 2 HR. Safety precautions is maintained. Bed at low position, brakes locked, side rails upX2 and call light is within reach. Will continue to monitor.
[2020-02-25 20:00] VITALS: BP 143/83
[2020-02-25 23:34] LABS: CALCIUM, SERUM 9.7 mg/dL (8.5-10.1); CARBON DIOXIDE 26 mmol/L (21-32); CHLORIDE 117 mmol/L (98-107); CREATININE 1.4 mg/dL (0.6-1.3); GLUCOSE 312 mg/dL (74-106); POTASSIUM 4.7 mmol/L (3.5-5.1); SODIUM SERUM 151 mmol/L (136-145); UREA NITROGEN, BLOOD 60 mg/dL (7-18)
[2020-02-26] VITALS (9 sets, daily range): BP systolic 114–146; BP diastolic 64–79
[2020-02-26] MEDS: IV D5W 1,000 ML IV PRN ×3 (04:05→15:15)
[2020-02-26] MEDS: BLOOD SUGAR DIAGNOSTIC 1 EACH STRIP IN SCH ×3 (05:12→17:35)
[2020-02-26] MEDS: INSULIN REGULAR, HUMAN 100 UNIT/ML 3 ML VIAL SQ PRN ×3 (05:15→17:39)
[2020-02-26 06:14] LABS: BASOPHILS % (AUTO) 0.1 % (0.0-2.0); EOSINOPHILS % (AUTO) 0.4 % (0.0-6.0); HEMATOCRIT 43 % (39-51); HEMOGLOBIN 13.9 g/dL (13.5-17.5); LYMPHOCYTES # (AUTO) 0.9 /CMM (0.8-4.8); LYMPHOCYTES % (AUTO) 15.5 % (20.0-44.0); MEAN CORPUSCULAR HGB CONC 33 g/dl (31.0-36.0); MEAN CORPUSCULAR VOLUME 101 fL (80-96); MONOCYTES # (AUTO) 0.4 /CMM (0.1-1.30); MONOCYTES % (AUTO) 7.1 % (2.0-12.0); NEUTROPHILS # (AUTO) 4.5 /CMM (1.8-8.9); NEUTROPHILS % (AUTO) 76.9 % (43.0-81.0); PLATELET COUNT (AUTO) 163 /CMM (150-450); RED BLOOD CELL COUNT(AUTO) 4.22 MIL/uL (4.5-6.0); WHITE BLOOD COUNT (AUTO) 5.9 K/uL (4.3-11.0)
[2020-02-26 06:33] LABS: CALCIUM, SERUM 9.2 mg/dL (8.5-10.1); CREATININE 1.2 mg/dL (0.6-1.3); MAGNESIUM 2.8 mg/dL (1.8-2.4); PHOSPHORUS 2.1 mg/dL (2.5-4.9); POTASSIUM 3.9 mmol/L (3.5-5.1)
--- NOTE | 2020-02-26 06:37 | NUR ---
multiple coil winder closing notes Pt is resting in bed comfortably. Pt is non verbal, able to open eyes and easily arousable. Breathing is even and unlabored on 3 L NC. No SOB. No S/S of distress noted. Tele monitor showed Sinus becca hr at 57 bpm. Vs is stable. Afebrile. Routine meds were given as ordered. IV sites at CHRIST# 22 is clean, intact and infusing well D5W@ 200 ml/hr. Bilateral soft wrist restraint are intact, skin is warm to touch and circulation is check Q 2 HR. Wound care provided as ordered. Kept Pt clean, dry and comfortable. All needs met and attended. Safety precautions is maintained. Bed at low position, brakes locked, side rails upX2 and call light is within reach. Will endorse to morning nurse for JULIEN.
--- NOTE | 2020-02-26 07:35 | NUR ---
cash accountant opening notes Patient is in bed sleeping, non-verbal, opens eyes when called/touched. Breathing is even and unlabored, on O2 at 3L via NC, no respiratory distress noted. On tele monitoring, reading of sr, hr at mid 60's, no cardiac distress. IV line on CHRIST #22 intact and patent, ivf of D5W @ 200 ml/hr infusing well. Bilateral soft wrist restraint are intact, skin/circulation checked. Safety precautions in place: bed at lowest position, side rails up X2, call light is within reach. Will continue to monitor.
[2020-02-26] MEDS: ASPIRIN 325 MG TABLET PO SCH (08:45)
[2020-02-26] MEDS: MULTIVITAMINS,THERAGRAN 1 UDTAB TABLET PO SCH (08:45)
[2020-02-26] MEDS: ASCORBIC ACID 500 MG TABLET PO SCH (08:46)
[2020-02-26] MEDS: ZINC SULFATE 220 MG CAPSULE PO SCH (08:46)
[2020-02-26] MEDS: CHOLECALCIFEROL 1,000 UNIT TABLET (VIT D3) PO SCH (08:46)
[2020-02-26] MEDS: CYANOCOBALAMIN 500 MCG TABLET PO SCH (08:46)
[2020-02-26] MEDS: FAMOTIDINE/PF INJ 20 MG/2 ML VIAL IV SCH ×2 (08:50→21:00)
[2020-02-26] MEDS: DEXAMETHASONE SOD PHOSPHATE 10 MG/ML VIAL IV SCH (08:50)
[2020-02-26] MEDS: diphenhydrAMINE HCL 50 MG/ML VIAL IV SCH ×2 (08:53→16:02)
[2020-02-26] MEDS: TRIAMCINOLONE ACETONIDE 0.1% CR 15 GM TUBE TP SCH ×2 (08:57→16:02)
[2020-02-26] MEDS: HEPARIN SODIUM, PORCINE 5000 UNITS/1 ML VIAL SQ SCH ×2 (08:57→21:01)
[2020-02-26] MEDS: NITROGLYCERIN 30 GM TUBE TP SCH ×2 (09:03→21:01)
--- NOTE | 2020-02-26 13:36 | NUR ---
RN NOTES DR. RIVERA W/ ORDER FOR COVID-19 ANTIGEN TEST. SWAB OBTAINED FROM LAB. SPECIMEN COLLECTED TODAY. WILL CONTINUE TO MONITOR.
[2020-02-26] MEDS: CEFTRIAXONE 1 G in IV D5W 50 ML IV SCH (17:17)
[2020-02-26] MEDS: POTASSIUM PHOSPHATE MM 7.5 MMOL in IV NS 0.9% 100 ML IV SCH ×2 (17:51→21:20)
--- NOTE | 2020-02-26 18:42 | NUR ---
heavy equipment service manager closing notes Patient is in bed sleeping, non-verbal, able to open eyes when called/touched. Breathing is even and unlabored, on O2, decreased to 2L via NC at this time, no respiratory distress noted. On tele monitoring, reading of sr, hr at mid 60's, no cardiac distress. IV line on CHRIST #22 and RFA #20 intact and patent, ivf of D5W @ 200 ml/hr infusing well. With bilateral soft wrist restraints, skin/circulation checked. Safety precautions maintained: bed at lowest position, side rails up X2, call light is within reach. Will endorse to business management consultant rn for faina.
--- NOTE | 2020-02-26 19:30 | NUR ---
RN NOTES RECEIVED PATIENT IN BED. OPENING EYES. BREATHING EVEN AND UNLABORED. ON O2 VIA NC AT 3L SATING TO 99 % NO SOB NOTED. TELE MONITOR SHOWS SINUS RHYTHM AT 64. NO SIGNS OF PAIN NOR DISCOMFORT. RASHES STILL VISIBLE. WOUND DRESSING ON R ARM CLEAN DRY AND INTACT. IV ON CHRIST AND RFA BOTH PATENT AND INTACT, FLUSHED. NO SIGNS OF INFECTION. IV POTASSIUM SULFATE RUNNING AT 34.16 ML/HR NO SIGNS OF INFILTRATION. SOFT RESTRAINT ON BW CHECKED FOR CIRCULATION AND SKIN. ALL SAFETY MEASURES IMPLEMENTED PER PROTOCOL. CALL LIGHT WITHIN REACH. BED LOCKED IN LOWEST POSITION. SIDE RAILS UP X 2.
[2020-02-27] MEDS: BLOOD SUGAR DIAGNOSTIC 1 EACH STRIP IN SCH ×4 (00:07→17:12)
[2020-02-27] MEDS: INSULIN REGULAR, HUMAN 100 UNIT/ML 3 ML VIAL SQ PRN ×4 (00:10→17:18)
--- NOTE | 2020-02-27 02:01 | NUR ---
RN NOTES RENEWED ORDER FOR BILATERAL WRISTS RESTRAINTS. TECHNICAL CLERK KEGianna AGREED TO RENEW. ORDER NOTED AND CARRIED OUT.
[2020-02-27 03:00] VITALS: BP 147/80
[2020-02-27 05:59] LABS: BASOPHILS % (AUTO) 0.1 % (0.0-2.0); EOSINOPHILS % (AUTO) 0.5 % (0.0-6.0); HEMATOCRIT 39 % (39-51); HEMOGLOBIN 13.1 g/dL (13.5-17.5); LYMPHOCYTES # (AUTO) 1.1 /CMM (0.8-4.8); LYMPHOCYTES % (AUTO) 17.4 % (20.0-44.0); MEAN CORPUSCULAR HGB CONC 33 g/dl (31.0-36.0); MEAN CORPUSCULAR VOLUME 100 fL (80-96); MONOCYTES # (AUTO) 0.5 /CMM (0.1-1.30); MONOCYTES % (AUTO) 7.4 % (2.0-12.0); NEUTROPHILS # (AUTO) 4.8 /CMM (1.8-8.9); NEUTROPHILS % (AUTO) 74.6 % (43.0-81.0); PLATELET COUNT (AUTO) 184 /CMM (150-450); RED BLOOD CELL COUNT(AUTO) 3.93 MIL/uL (4.5-6.0); WHITE BLOOD COUNT (AUTO) 6.5 K/uL (4.3-11.0)
[2020-02-27 06:07] LABS: CALCIUM, SERUM 8.9 mg/dL (8.5-10.1); CREATININE 1.1 mg/dL (0.6-1.3); MAGNESIUM 2.4 mg/dL (1.8-2.4); PHOSPHORUS 2.8 mg/dL (2.5-4.9); POTASSIUM 3.8 mmol/L (3.5-5.1)
[2020-02-27 07:00] VITALS: BP 121/74
--- NOTE | 2020-02-27 07:27 | NUR ---
WEED CONTROL INSPECTOR OPENING NOTES RECEIVED PATIENT RESTING IN BED. MARSHALLESE SPEAKER, NONVERAL, OPENS EYES. A/OX0. ON OXYVEN VIA NC@3L WITH OXYGEN SATURATION RANGING 98-99%. NO ACUTE RESPIRATORY DISTRESS NOTEC, BREATHING EVEN AND UNLABORED. NO SOB NOTED. NO PAIN OR DISCOMFORT NOTED. PATIENT ON TELE MONITOR READING SR WITH HR AT 65. BILAT SOFT WRIST RESTRAINTS IN PLACE, CIRCULATION AND SKIN CHECKED DONE Q2HR. NO NEW SKIN BREAKDOWN NOTED. IV TO CHRIST #22 PATENT AND INTACT KEPT SL AND IV TO RFA#20 PATENT AND INTACT INFUSING D5W @100 ML/HR ON FREQUENT VISUAL CHECK. ALL SAFETY MEASURES IMPLEMENTED PER PROTOCOL. BED AT LOW POSITION AND LOCKED WITH SIDE RAILS UP X 2 AND CALL LIGHT WITHIN REACH. WILL CONTINUE TO MONITOR PATIENT THROUGH SHIFT.
--- NOTE | 2020-02-27 07:33 | NUR ---
SOFTWARE PRODUCT SPECIALIST CLOSING NOTES PATIENT REMAINS IN BED. CONTINUE ON O2 VIA NC AT 3L, TOLERATING. NO DISTRESS NOTED.. TELE MONITOR SHOWS SR HR 61. B.WRIST SOFT RESTRAINTS ON, CIRCULATION AND SKIN CHECKED. NO NEW SKIN BREAKDOWN NOTED. NO SIGNS OF PAIN. D5W INFUSING WELL. NO SIGNS OF INFILTRATION. ON FREQUENT VISUAL CHECK. ALL SAFETY MEASURES IMPLEMENTED PER PROTOCOL. SIDE RAILS UP X 2. CALL LIGHT WITHIN REACH. BED LOCKED IN LOWEST POSITION. WILL ENDORSE TO NEXT SHIFT NURSE FOR JULIEN.
[2020-02-27] MEDS: CYANOCOBALAMIN 500 MCG TABLET PO SCH (09:00)
[2020-02-27] MEDS: MULTIVITAMINS,THERAGRAN 1 UDTAB TABLET PO SCH (09:00)
[2020-02-27] MEDS: ZINC SULFATE 220 MG CAPSULE PO SCH (09:00)
[2020-02-27] MEDS: CHOLECALCIFEROL 1,000 UNIT TABLET (VIT D3) PO SCH (09:00)
[2020-02-27] MEDS: ASPIRIN 325 MG TABLET PO SCH (09:00)
[2020-02-27] MEDS: ASCORBIC ACID 500 MG TABLET PO SCH (09:00)
[2020-02-27] MEDS: TRIAMCINOLONE ACETONIDE 0.1% CR 15 GM TUBE TP SCH ×2 (09:27→16:48)
[2020-02-27] MEDS: diphenhydrAMINE HCL 50 MG/ML VIAL IV SCH ×2 (09:31→16:48)
[2020-02-27] MEDS: DEXAMETHASONE SOD PHOSPHATE 10 MG/ML VIAL IV SCH (09:33)
[2020-02-27] MEDS: FAMOTIDINE/PF INJ 20 MG/2 ML VIAL IV SCH ×2 (09:35→21:18)
[2020-02-27] MEDS: NITROGLYCERIN 30 GM TUBE TP SCH ×2 (09:37→21:17)
[2020-02-27] MEDS: IV D5W 1,000 ML IV PRN (10:09)
[2020-02-27 11:00] VITALS: BP 106/69
[2020-02-27 15:00] VITALS: BP 120/85
[2020-02-27] MEDS: CEFTRIAXONE 1 G in IV D5W 50 ML IV SCH (17:00)
[2020-02-27] MEDS: IV D5/0.45 NACL 1,000 ML IV PRN (17:13)
--- NOTE | 2020-02-27 19:15 | NUR ---
NONPROFIT FINANCIAL CONTROLLER CLOSING NOTES PATIENT CONTINUES RESTING IN BED. [place] ISLANDER SPEAKER, NONVERAL, OPENS EYES. A/OX0. ON OXYVEN VIA NC@3L WITH OXYGEN SATURATION RANGING 98-99%. NO ACUTE RESPIRATORY DISTRESS NOTED BREATHING EVEN AND UNLABORED. NO SOB NOTED. NO PAIN OR DISCOMFORT NOTED. PATIENT ON TELE MONITOR READING SR WITH HR IN THE 60'S. BILAT SOFT WRIST RESTRAINTS IN PLACE, ORDER DUE TO BE RENEWED AT 0201. CIRCULATION AND SKIN CHECKED DONE Q2HR. NO NEW SKIN BREAKDOWN NOTED. IV TO CHRIST #22 PATENT AND INTACT KEPT SL AND IV TO RFA#20 PATENT AND INTACT INFUSING D5 1/2 NS @100 ML/HR ON FREQUENT VISUAL CHECK. ALL SAFETY MEASURES IMPLEMENTED PER PROTOCOL. BED AT LOW POSITION AND LOCKED WITH SIDE RAILS UP X 2 AND CALL LIGHT WITHIN REACH. WILL ENDORSE TO ONCOMING SHIFT
--- NOTE | 2020-02-27 19:31 | NUR ---
RN OPENING NOTES PATIENT RECEIVED RESTING IN BED A/O X 0, NONVERBAL BUT ABLE TO OPEN EYES. ON 3L OF O2 WITH BREATHING EVEN AND UNLABORED, NO SOB NOTED. NO SIGNS OF ACUTE DISTRESS. NO SIGNS OF PAIN OR DISCOMFORT AT THE MOMENT. BILATERAL SOFT WRIST RESTRAINTS IN PLACE WITH NO REDNESS ON SKIN, PULSE PRESENT. IV LOCATED ON R UA #22 SL AND RFA #20 RUNNING D51/2 NS. PATIENT REMAINING NPO THROUGHOUT THE NIGHT. CONSENT FOR PEG PLACEMENT ATTAINED FROM AM NURSE IN CHART. SAFETY PRECAUTIONS IN PLACE WITH BED IN LOWEST POSITION, CALL LIGHT WITHIN REACH, BREAKS ON, SIDE RAILS UP, BED IN SEMI FOWLERS POSITION.
[2020-02-27 20:00] VITALS: BP 113/83
[2020-02-28] VITALS (8 sets, daily range): BP systolic 102–138; BP diastolic 62–79
--- NOTE | 2020-02-28 03:37 | NUR ---
COVID PCR TEST RECEIVED FROM PATIENT AND DELIVERED TO LAB
[2020-02-28] MEDS: INSULIN REGULAR, HUMAN 100 UNIT/ML 3 ML VIAL SQ PRN ×3 (05:37→17:37)
[2020-02-28] MEDS: IV D5/0.45 NACL 1,000 ML IV PRN (05:38)
[2020-02-28] MEDS: BLOOD SUGAR DIAGNOSTIC 1 EACH STRIP IN SCH ×5 (06:04→23:58)
[2020-02-28 06:10] LABS: BASOPHILS % (AUTO) 0.1 % (0.0-2.0); EOSINOPHILS % (AUTO) 0.3 % (0.0-6.0); HEMATOCRIT 41 % (39-51); HEMOGLOBIN 13.7 g/dL (13.5-17.5); LYMPHOCYTES # (AUTO) 1.2 /CMM (0.8-4.8); MEAN CORPUSCULAR HGB CONC 34 g/dl (31.0-36.0); MEAN CORPUSCULAR VOLUME 98 fL (80-96); MONOCYTES # (AUTO) 0.6 /CMM (0.1-1.30); MONOCYTES % (AUTO) 8.5 % (2.0-12.0); NEUTROPHILS # (AUTO) 5.4 /CMM (1.8-8.9); NEUTROPHILS % (AUTO) 75.1 % (43.0-81.0); PLATELET COUNT (AUTO) 177 /CMM (150-450); RED BLOOD CELL COUNT(AUTO) 4.11 MIL/uL (4.5-6.0); WHITE BLOOD COUNT (AUTO) 7.2 K/uL (4.3-11.0)
[2020-02-28 06:17] LABS: CALCIUM, SERUM 8.6 mg/dL (8.5-10.1); CARBON DIOXIDE 30 mmol/L (21-32); CHLORIDE 108 mmol/L (98-107); CREATININE 1.3 mg/dL (0.6-1.3); GLUCOSE 147 mg/dL (74-106); MAGNESIUM 2.1 mg/dL (1.8-2.4); PHOSPHORUS 2.6 mg/dL (2.5-4.9); POTASSIUM 3.8 mmol/L (3.5-5.1); SODIUM SERUM 140 mmol/L (136-145); UREA NITROGEN, BLOOD 39 mg/dL (7-18)
--- NOTE | 2020-02-28 06:54 | NUR ---
RN CLOSING NOTES PATIENT RESTING IN BED A/O X 0, NONVERBAL BUT ABLE TO OPEN EYES. ON 1L OF O2 WITH BREATHING EVEN AND UNLABORED, NO SOB NOTED. NO SIGNS OF ACUTE DISTRESS. NO SIGNS OF PAIN OR DISCOMFORT AT THE MOMENT. BILATERAL SOFT WRIST RESTRAINTS IN PLACE WITH NO REDNESS ON SKIN, PULSE PRESENT. IV LOCATED ON R UA #22 AND RFA #20 RUNNING D51/2 NS. PATIENT REMAINED NPO THROUGHOUT THE NIGHT. SAFETY PRECAUTIONS IN PLACE WITH BED IN LOWEST POSITION, CALL LIGHT WITHIN REACH, BREAKS ON, SIDE RAILS UP, BED IN SEMI FOWLERS POSITION. ALL NEEDS ATTENDED TO. PATIENT KEPT CLEAN AND DRY THROUGHOUT THE NIGHT. WILL ENDORSE TO ONCOMING SHIFT ABOUT JULIEN.
--- NOTE | 2020-02-28 08:05 | NUR ---
RN NOTES PATIENT RECEIVED RESTING IN BED A/O X 0, NONVERBAL BUT ABLE TO OPEN EYES. ON 1L OF O2 WITH BREATHING EVEN AND UNLABORED, NO SOB NOTED. NO SIGNS OF ACUTE DISTRESS. NO SIGNS OF PAIN OR DISCOMFORT AT THE MOMENT. BILATERAL SOFT WRIST RESTRAINTS IN PLACE WITH NO REDNESS ON SKIN, PULSE PRESENT. IV LOCATED ON R UA #22 SL AND RFA #20. PATIENT IS CURRENTLY NPO SAFETY PRECAUTIONS IN PLACE WITH BED IN LOWEST POSITION, CALL LIGHT WITHIN REACH, BREAKS
[2020-02-28] MEDS: CYANOCOBALAMIN 500 MCG TABLET PO SCH (09:00)
[2020-02-28] MEDS: ZINC SULFATE 220 MG CAPSULE PO SCH (09:00)
[2020-02-28] MEDS: MULTIVITAMINS,THERAGRAN 1 UDTAB TABLET PO SCH (09:00)
[2020-02-28] MEDS: ASPIRIN 325 MG TABLET PO SCH (09:00)
[2020-02-28] MEDS: CHOLECALCIFEROL 1,000 UNIT TABLET (VIT D3) PO SCH (09:00)
[2020-02-28] MEDS: ASCORBIC ACID 500 MG TABLET PO SCH (09:00)
[2020-02-28] MEDS: DEXAMETHASONE SOD PHOSPHATE 10 MG/ML VIAL IV SCH (09:38)
[2020-02-28] MEDS: FAMOTIDINE/PF INJ 20 MG/2 ML VIAL IV SCH ×2 (09:39→21:26)
[2020-02-28] MEDS: diphenhydrAMINE HCL 50 MG/ML VIAL IV SCH ×2 (09:39→16:39)
[2020-02-28] MEDS: NITROGLYCERIN 30 GM TUBE TP SCH ×2 (09:40→21:26)
[2020-02-28] MEDS: TRIAMCINOLONE ACETONIDE 0.1% CR 15 GM TUBE TP SCH ×2 (09:49→16:49)
[2020-02-28] MEDS ORDERED: ANESTHESIA TRAY IN PYXIS 1 EA TRAY MC ONE (11:32)
--- NOTE | 2020-02-28 12:30 | NUR ---
PT WAS BROUGHT TO [facility] FOR EGD AND PEG PLACEMENT PROCEDURE WITH STABLE V/S.WITH O2 AT 1L/MIN VIA NC.ALL CONSENTS HAS BEEN OBTAINED VIA PHONE FROM SHARA MEJIAS (DTR) .
--- NOTE | 2020-02-28 13:30 | NUR ---
RN NOTES PT BACK FROM [facility] POST EGD AND PEG PLACEMENT. PT IN STABLE CONDITION VITAL SIGNS ARE SBP 138/70, TEMP 97, HR71, OXYGEN SATURATION 93% RR 12 . WILL CONTINUE TO MONITOR.
[2020-02-28 14:52] LABS: C-REACTIVE PROTEIN 0.7 mg/dL (0.0-0.9)
[2020-02-28] MEDS: CEFTRIAXONE 1 G in IV D5W 50 ML IV SCH (17:34)
--- NOTE | 2020-02-28 18:55 | NUR ---
RN NOTES PT SLEEPING IN BED A/O X 0, NONVERBAL BUT ABLE TO OPEN EYES. ON 1L OF O2 WITH BREATHING EVEN AND UNLABORED, NO SOB NOTED. NO SIGNS OF ACUTE DISTRESS. NO SIGNS OF PAIN OR DISCOMFORT AT THE MOMENT. BILATERAL SOFT WRIST RESTRAINTS IN PLACE WITH NO REDNESS ON SKIN, PULSE PRESENT. IV LOCATED ON CHRIST #22. PATIENT IS POST PEG PLACEMENT INITIATED BOLUS FEEDING 20 ML /HR TO BE ADVANCED TO 55ML /HR SAFETY PRECAUTIONS IN PLACE WITH BED IN LOWEST POSITION, CALL LIGHT WITHIN REACH, BREAKS
--- NOTE | 2020-02-28 19:30 | NUR ---
TELE/RN OPENING NOTES RECEIVED PATIENT IN BED SLEEPING, EASY TO AROUSE. PATIENT IS ALERT AND ORIENTED X 1, OPENS EYES. BREATHING IS EVEN AND UNLABORED. NO SIGNS OF SOB OR RESPIRATORY DISTRESS NOTED. PATIENT IS IN NO SIGNS OF DISTRESS. TELE READING SR. PATIENT IS S/P G TUBE PLACEMENT, IN PLACE INTACT. BILATERAL SOFT WRIST RESTRAINTS ARE IN PLACE, HAND CIRCULATION IS GOOD. SAFETY MEASURES ARE IN PLACE, BED IS LOCKED AND PLACED IN THE LOW POSITION, CALL LIGHT WITH IN REACH. SIDE RAILS ARE UP X 3. WILL CONTINUE TO MONITOR THROUGH OUT SHIFT.
[2020-02-29] MEDS: INSULIN REGULAR, HUMAN 100 UNIT/ML 3 ML VIAL SQ PRN ×2 (00:02→12:46)
--- NOTE | 2020-02-29 00:40 | NUR ---
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
[2020-02-29 03:00] VITALS: BP 131/72
[2020-02-29] MEDS: IV D5/0.45 NACL 1,000 ML IV PRN (03:38)
[2020-02-29] MEDS: BLOOD SUGAR DIAGNOSTIC 1 EACH STRIP IN SCH ×3 (05:41→17:01)
[2020-02-29 06:33] LABS: EOSINOPHILS % (AUTO) 0.5 % (0.0-6.0); HEMATOCRIT 41 % (39-51); HEMOGLOBIN 13.8 g/dL (13.5-17.5); LYMPHOCYTES # (AUTO) 1.1 /CMM (0.8-4.8); LYMPHOCYTES % (AUTO) 11.9 % (20.0-44.0); MEAN CORPUSCULAR HGB CONC 34 g/dl (31.0-36.0); MEAN CORPUSCULAR VOLUME 100 fL (80-96); MONOCYTES # (AUTO) 0.6 /CMM (0.1-1.30); MONOCYTES % (AUTO) 6.4 % (2.0-12.0); NEUTROPHILS # (AUTO) 7.6 /CMM (1.8-8.9); NEUTROPHILS % (AUTO) 81.2 % (43.0-81.0); PLATELET COUNT (AUTO) 182 /CMM (150-450); RED BLOOD CELL COUNT(AUTO) 4.16 MIL/uL (4.5-6.0); WHITE BLOOD COUNT (AUTO) 9.4 K/uL (4.3-11.0)
--- NOTE | 2020-02-29 06:50 | NUR ---
TELE/RN CLOSING NOTES PATIENT IN BED SLEEPING, EASY TO AROUSE. PATIENT IS ALERT AND ORIENTED X 1, OPENS EYES. BREATHING IS EVEN AND UNLABORED. NO SIGNS OF SOB OR RESPIRATORY DISTRESS NOTED. PATIENT IS IN NO SIGNS OF DISTRESS. TELE READING SR. PATIENT IS S/P G TUBE PLACEMENT, IN PLACE INTACT RESIDUAL 180 CC. BILATERAL SOFT WRIST RESTRAINTS ARE IN PLACE, HAND CIRCULATION IS GOOD. ALL NEEDS MET DURING SHIFT. SAFETY MEASURES ARE IN PLACE, BED IS LOCKED AND PLACED IN THE LOW POSITION, CALL LIGHT WITH IN REACH. SIDE RAILS ARE UP X 3. WILL ENDORSE CARE TO DAY SHIFT NURSE.
[2020-02-29 07:00] VITALS: BP 98/59
[2020-02-29 07:37] LABS: CALCIUM, SERUM 9.2 mg/dL (8.5-10.1); CREATININE 1.2 mg/dL (0.6-1.3); MAGNESIUM 2.7 mg/dL (1.8-2.4); PHOSPHORUS 2.7 mg/dL (2.5-4.9); POTASSIUM 4.1 mmol/L (3.5-5.1)
--- NOTE | 2020-02-29 08:00 | NUR ---
TELE/RN OPENING NOTES RECEIVED PATIENT IN BED SLEEPING, EASY TO AROUSE. PATIENT IS ALERT AND ORIENTED X 1, OPENS EYES. BREATHING IS EVEN AND UNLABORED. NO SIGNS OF SOB OR RESPIRATORY DISTRESS NOTED. PATIENT IS IN NO SIGNS OF DISTRESS. TELE READING SR. PATIENT IS S/P G TUBE PLACEMENT 02/27, IN PLACE INTACT. GT FEEDING GLUCERNA ADMINISTERED ,PT TOLERATING WELL WITH NO RESIDUALS NOTED.BILATERAL SOFT WRIST RESTRAINTS ARE IN PLACE, HAND CIRCULATION IS GOOD. SAFETY MEASURES ARE IN PLACE, TURNED/REPOSITIONED EVERY TWO HOURS. BED IS LOCKED AND PLACED IN THE LOW POSITION, CALL LIGHT WITH IN REACH. SIDE RAILS ARE UP X 3. WILL CONTINUE TO MONITOR THROUGH OUT SHIFT.
[2020-02-29] MEDS: ASCORBIC ACID 500 MG TABLET PO SCH (08:47)
[2020-02-29] MEDS: diphenhydrAMINE HCL 50 MG/ML VIAL IV SCH ×2 (08:47→16:56)
[2020-02-29] MEDS: CHOLECALCIFEROL 1,000 UNIT TABLET (VIT D3) PO SCH (08:47)
[2020-02-29] MEDS: ASPIRIN 325 MG TABLET PO SCH (08:47)
[2020-02-29] MEDS: CYANOCOBALAMIN 500 MCG TABLET PO SCH (08:47)
[2020-02-29] MEDS: FAMOTIDINE/PF INJ 20 MG/2 ML VIAL IV SCH (08:48)
[2020-02-29] MEDS: DEXAMETHASONE SOD PHOSPHATE 10 MG/ML VIAL IV SCH (08:48)
[2020-02-29] MEDS: NITROGLYCERIN 30 GM TUBE TP SCH (08:50)
--- NOTE | 2020-02-29 08:51 | NUR ---
RN NOTES' NITROGLYCERIN OINTMENT NOT ADMINISTERED SBP 98/59. WILL CONTINUE TO MONITOR.
[2020-02-29] MEDS: MULTIVITAMINS,THERAGRAN 1 UDTAB TABLET PO SCH (09:02)
[2020-02-29] MEDS: ZINC SULFATE 220 MG CAPSULE PO SCH (09:02)
[2020-02-29] MEDS: TRIAMCINOLONE ACETONIDE 0.1% CR 15 GM TUBE TP SCH ×2 (09:04→16:57)
[2020-02-29 11:00] VITALS: BP 125/71
--- NOTE | 2020-02-29 12:13 | NUR ---
DAUGHTERJANIS CALLED AND WANTS PT TO BE DISCHARGED HOME AND TO BE ADMITTED UNDER HOSPICE.FAMILY WANTS REPEAT COVID TESTING TO BE DONE AND REFUSED PT TO BE DISCHARGED TO THE [facility]. NOTIFIED DR NANCY CASANOVA AND [facility].
[2020-02-29 15:00] VITALS: BP 125/71
[2020-02-29] MEDS ORDERED: DIATR MEGLU/DIATRIZOATE SODIUM 30 ML BOTTLE (GASTROGRAPHIN) ONE (15:00)
[2020-02-29] MEDS: CEFTRIAXONE 1 G in IV D5W 50 ML IV SCH (17:00)
[2020-02-29 19:00] VITALS: BP 120/68
--- NOTE | 2020-02-29 21:00 | NUR ---
DISCHARGED PT TO [facility] VIA AMBULANCE WITH STABLE V/S. HEPLOCKS TO [facility] REMAINS INTACT WITH NO INFILTRATION,NO REDNESS OR SWELLING NOTED ON THE SITE FOR CONTINUATION OF IV ATB THERAPY ROCEPHIN TILL 03/02/2020. NO SOB ON ROOM AIR AT 93%. NO COUGHING NOTED.NO S/S OF PAIN OR DISTRESS.REPORT CALLED IN TO GISSELL ELLIS OF [facility].GT REMAINS INTACT AND PATENT.WITH ABDOMINAL BINDER IN PLACE. NO S/S OF HYPO/HYPERGLYCEMIA.BS 95.PT'S SON SUSAN AWARE OF THE DISCHARGE.
== END 2020-02-29 20:58 | DRG 871 ==
LOC: ER 00:58 → TRANSITION 02:18 → TELE1 02-21 21:39 → MEDSG1 02-29 09:21
PROVIDERS: ADMIT Internal Medicine
PROC: 0DH63UZ Insertion of Feeding Device into Stomach, Percutaneous Approach (ICD-10-PCS; principal; 2020-02-28)
DX: A41.89 Other specified sepsis (principal); U07.1 COVID-19; J18.9 Pneumonia, unspecified organism; G93.41 Metabolic encephalopathy; J12.89 Other viral pneumonia; J96.01 Acute respiratory failure with hypoxia; I21.A1 Myocardial infarction type 2; N17.0 Acute kidney failure with tubular necrosis; E87.2 Acidosis; N39.0 Urinary tract infection, site not specified; E87.0 Hyperosmolality and hypernatremia; A41.01 Sepsis due to Methicillin susceptible Staphylococcus aureus; R74.01 Elevation of levels of liver transaminase levels; F09 Unspecified mental disorder due to known physiological condition; E86.0 Dehydration; F02.80 Dementia in other diseases classified elsewhere, unspecified severity, without behavioral disturbance, psychotic disturbance, mood disturbance, and anxiety; F32.9 Major depressive disorder, single episode, unspecified; F41.9 Anxiety disorder, unspecified; G30.9 Alzheimer's disease, unspecified; Z79.899 Other long term (current) drug therapy; R13.10 Dysphagia, unspecified; I10 Essential (primary) hypertension; K29.70 Gastritis, unspecified, without bleeding; E86.1 Hypovolemia; B86 Scabies
CPT/HCPCS: 36415; 36600; 70450-TC; 71045-TC; 71250-TC; 74018; 76705-TC; 80048-TC; 80053-TC; 80061-TC; 80202-TC; 81001; 82248-TC; 82550-TC; 82553; 82728-TC; 82803-TC; 82962-TC; 83605-TC; 83615-TC; 83735-TC; 83880; 84100-TC; 84443-TC; 84484-TC; 85025-TC; 85378-TC; 85610-TC; 85730-TC; 86140-TC; 87040-TC; 87081-TC; 87086-TC; 93308-TC; A6403; C9113; G0378; J0690; J0692; J0696; J1100; J1200; J1644; J1815; J2060; J2270; J2405; J2704; J3370; J3490; J7030; J7050; J7060; J7070; Q9963; U0003